=== PATIENT | male | born 1935 | race Asian ===

== ENCOUNTER 2017-05-22 03:47 | Inpatient (IN) | payer OTHER ==
--- NOTE | 2017-05-22 04:48 | PDOC ---
History of Present Illness - General Stated Complaint: FALL Time Seen by Provider: 05/22/17 03:51 - History of Present Illness Initial Comments: 05/22/17 04:39 82 yo with h/o HTN, DM, afib, vertigo, dementia, and recent fall who presents with facial trauma. Pt. and pt. at bedside are lithuanian speaking. Pt. to assist in report. Pt. unable to provide report d/t baseline dementia, altered mental status, and hearing difficulty. He lives with who is poor historian. States that at 0300 pt. fell while attempting to ambulate to bathroom and hit left side of head on hand rail. He that he has been experiencing difficulty with walking this past week. He has been stumbling more frequently and complaining of lightheadedness. He has had recent fall and evaluated at OSH 3 days ago. States that he is compliant with all medication, and recently seen by professor of graphic design Dr. Hipolito Aguilar at [facility]. Scheduled for Cardiology apt. ( 05/22). Pt. on Rivaroxaban 20 mg PO QD. Past History - Past Medical History Allergies/Adverse Reactions: Allergies Allergy/AdvReac Type Severity Reaction Status Date / Time No Known Allergies Allergy Verified 05/22/17 06:40 Home Medications: Ambulatory Orders Acetaminophen W/ Codeine #3 [Tylenol # 3 -] 1 tab PO DAILY 05/22/17 Donepezil HCl [Aricept -] 5 mg PO DAILY 05/22/17 Dutasteride [Avodart] 0.5 mg PO DAILY 05/22/17 Loratadine [Claritin] 10 mg PO DAILY 05/22/17 Losartan/Hydrochlorothiazide [Losartan-Hctz 100-25 mg Tab] 1 each PO DAILY 05/22 Meclizine HCl 12.5 mg PO DAILY 05/22/17 Metformin HCl 500 mg PO DAILY 05/22/17 Metoprolol Succinate [Toprol Xl -] 50 mg PO DAILY 05/22/17 Multivitamin,Therapeutic [Thera] 1 each PO DAILY 05/22/17 Rivaroxaban [Xarelto -] 20 mg PO DAILY 05/22/17 Sennosides [Senna] 8.6 mg PO DAILY 05/22/17 Sitagliptin Phosphate [Januvia] 50 mg PO DAILY 05/22/17 Review of Systems - Review of Systems Comments:: 05/22/17 06:05 Unable to assess d/t pt. mental status *Physical Exam - Physical Exam Comments: 05/22/17 04:50 Physical exam limited d/t AMS, and weakness. GENERAL: Awake, alert. Pt. lethargic. HEAD: + mild 1 mm laceration/abrasion left superior forehead orbit/eyebrow.+ left maxillary abrasion. Left inferior orbit swelling. normocephalic, EYES: PERRLA, EOMI, sclera anicteric, conjunctiva clear ENT: + Cerumen impaction BL. Tympanic membranes difficult to visualize. Auricles normal inspection, hearing grossly normal, nares patent, oropharynx clear without. Absent hemotypanum. No evidence of septal hematoma. exudates. Moist mucosa NECK: Normal ROM, supple, no lymphadenopathy, JVD, or masses LUNGS: No distress, clear to auscultation bilaterally HEART: Irregular rate and rhythm. normal S1 and S2, no murmurs, rubs or gallops , peripheral pulses normal and equal bilaterally. ABDOMEN: Soft, nontender, normoactive bowel sounds. No guarding, no rebound. No masses EXTREMITIES:Dried blood present on plantar surface of right foot. Normal passive range of motion, no edema. No clubbing or cyanosis. NEUROLOGICAL: CN II-III intact SKIN: Warm, Dry, normal turgor, no rashes or lesions noted. Heart Score/ECG Review - History History: Moderately suspicious - Age Age: >/= 65 - Risk Factors Risk Factors Heart Score: Yes Hx Hypercholesterolemia, Yes Hx Hypertension, Yes Hx Diabetes Based on the list above the patient has:: >/=3 risk factors or Hx atherosclerotic disease - ECG Intrepretation Rhythm: PVC(s) - [place]: Right [place] Deviation - ST and T Comment:: 05/22/17 05:52 Diffuse T wave depression - ECG Impressions Normal ECG: No WPW: No ED Treatment Course - LABORATORY CBC & Chemistry Diagram: 05/22/17 05:18 05/22/17 05:18 - RADIOLOGY Radiology Studies Ordered: Category Date Time Status CERVICAL SPINE CT W/O CONTR [CT] Stat CT Scan 05/22/17 04:[address] WITHOUT CONTRAST [CT] Stat CT Scan 05/22/17 04:01 Ordered CXRPORT [CHEST X-RAY PORTABLE*] [RAD] Stat Radiology 05/22/17 04:28 Ordered Radiograph Interpretation: 05/22/17 07:00 EXAM#: TYPE/EXAM: RESULT: [id number] RAD/CHEST X-RAY PORTABLE* Lightheadedness. Single portable chest x-ray. Cardiomegaly. Left lower lung zone obscured by the cardiac silhouette. No evidence of CHF, pneumothorax, pulmonary consolidation in the right lung, left upper lung zone. Right mid lung granuloma. Intact visualized also structures. Impression. Cardiomegaly. No evidence of CHF. No evidence of active pulmonary disease. Reported By: Gianfranco Gómez MD 05/22/17 0654 Hipolito Weiss Medical Decision Making - Medical Decision Making 05/22/17 05:53 82 yo with h/o HTN, DM, afib, vertigo, dementia, and recent fall who presents with facial trauma 2/2 fall. Pt. unable to provide report d/t baseline dementia , altered mental status, and hearing difficulty. At 0300 Pt. fell and hit head while attempting ambulation to bathroom. Has experienced increased lightheadedness within past week. Let sided forehead and left maxillary abrasion and swelling. DDx: Afib 05/22/17 05:56 ED Course: CBC, CMP, Trop, BNP EKG CXR CT HEAD/NECK 05/22/17 05:57 EKG: Reveals Accelerated junctional rhythm with frequent PVC. 05/22/17 06:05 Hgb/Hct: 10.5/31 05/22/17 06:18 Plt-113 05/22/17 07:00 Impression. Cardiomegaly. No evidence of CHF. No evidence of active pulmonary disease. Reported By: Gianfranco Gómez MD 05/22/17 0654 Hipolito Weiss Trop: Neg
[2017-05-22 05:27] LABS: EOSINOPHIL 2.4 % (0-4.5); MCH 33.1 pg (25.7-33.7); MCHC 33.8 g/dl (32.0-35.9); MEAN CELL VOLUME 97.9 fl (80-96); NEUTROPHILS 66.6 % (42.8-82.8); PLATELET COUNT 113 K/MM3 (134-434); RDW 14.3 % (11.9-15.9); WHITE BLOOD COUNT 4.2 K/mm3 (4.0-10.0)
[2017-05-22 05:29] VITALS: BMI 23.4
--- NOTE | 2017-05-22 06:07 | PDOC ---
Attending Attestation - Resident Resident Name: Hipolito Weiss - ED Attending Attestation I have performed the following: I have examined & evaluated the patient, The case was reviewed & discussed with the resident, I agree w/resident's findings & plan, Exceptions are as noted <Bradly Garcia - Last Filed: 05/22/17 06:07> - HPI HPI: The patient is a 82 yo M with a past medical history significant for HTN, DM, Afib and dementia who presents s/p mechanical fall with forehead laceration. The patient is a poor historian secondary to dementia. As per , the patient fell while attempting to ambulate to bathroom and hit left side of head on hand rail. As per the patients , the patient has been falling recently ( most recently prior to today was 3 days ago.) The patient reports hes been having increased lightheadedness over the past 3 weeks. As per the patients , she is unaware as to what his symptoms are. - Physicial Exam PE: GENERAL: Well developed, well nourished. Awake and alert. No acute distress. HEENT: Normocephalic. Soft tissue swelling no bony deformity. Abrasion L frontal scalp , L cheek. PERRLA, EOMI. No conjunctival pallor. Sclera are non-icteric. Moist mucous membranes. Oropharynx is clear. NECK: Supple. Full ROM. No JVD. Carotid pulses 2+ and symmetric, without bruits. No thyromegaly. No lymphadenopathy. CARDIOVASCULAR: Regular rate and rhythm. No murmurs, rubs, or gallops. Distal pulses are 2+ and symmetric. PULMONARY: No evidence of respiratory distress. Lungs clear to auscultation bilaterally. No wheezing, rales or rhonchi. ABDOMINAL: Soft. Non-tender. Non-distended. No rebound or guarding. No organomegaly. Normoactive bowel sounds. MUSCULOSKELETAL Normal range of motion at all joints. No bony deformities or tenderness. No CVA tenderness. EXTREMITIES: No cyanosis. No clubbing. No edema. No calf tenderness. SKIN: Warm and dry. Normal capillary refill. No rashes. No jaundice. NEUROLOGICAL: No gross focal neurological deficits. PSYCHIATRIC: Cooperative. Good eye contact. Appropriate mood and affect. - Medical Decision Making Documentation prepared by Ambreen Dela Cruz, acting as medical records secretary for Bradly Garcia MD/DO. <Ambreen Dela Cruz - Last Filed: 05/22/17 06:09>
[2017-05-22 06:11] LABS: ALBUMIN 3.9 g/dl (3.4-5.0); ANION GAP 5 (8-16); BILIRUBIN,TOTAL 0.9 mg/dL (0.2-1.0); CALCIUM 8.9 mg/dL (8.5-10.1); CO2 32 mmol/L (21-32); CREATININE 1.1 mg/dL (0.7-1.3); GLUCOSE,RANDOM 132 mg/dL (74-106); SGOT/AST 65 U/L (15-37); SGPT/ALT 83 U/L (12-78); TOT PROT 6.5 g/dl (6.4-8.2)
[2017-05-22 06:12] LABS: ALK PHOS 88 U/L (45-117); MAGNESIUM 2.3 mg/dL (1.8-2.4)
[2017-05-22 06:14] LABS: CPK 180 IU/L (39-308); TROPONIN I < 0.02 ng/ml (0.00-0.05)
[2017-05-22 06:40] LABS: INR 1.22 (0.82-1.09); PROTHROMBIN TIME (PATIENT) 13.5 SEC (9.98-11.88)
--- NOTE | 2017-05-22 07:21 | PDOC ---
*Physical Exam - Vital Signs Last Vital Signs Temp Pulse Resp BP Pulse Ox 97.4 F L 73 18 112/65 98 05/22/17 05:00 05/22/17 06:32 05/22/17 06:32 05/22/17 06:32 05/22/17 06:32 ED Treatment Course - LABORATORY CBC & Chemistry Diagram: 05/22/17 05:18 05/22/17 05:18 - ADDITIONAL ORDERS Additional order review: Laboratory Results 05/22/17 05/22/17 05/22/17 05:18 05:18 05:18 INR PTT (Actin FS) 35.2 H Sodium 142 Potassium 3.8 Chloride 105 Carbon Dioxide 32 Anion Gap 5 L BUN 23 H Creatinine 1.1 Creat Clearance w eGFR > 60 Random Glucose 132 H Calcium 8.9 Magnesium 2.3 Total Bilirubin 0.9 AST 65 H ALT 83 H Alkaline Phosphatase 88 Creatine Kinase 180 Creatine Kinase Index 1.4 CK-MB (CK-2) 2.525 Troponin I < 0.02 Total Protein 6.5 Albumin 3.9 05/22/17 05:18 INR 1.22 H PTT (Actin FS) Sodium Potassium Chloride Carbon Dioxide Anion Gap BUN Creatinine Creat Clearance w eGFR Random Glucose Calcium Magnesium Total Bilirubin AST ALT Alkaline Phosphatase Creatine Kinase Creatine Kinase Index CK-MB (CK-2) Troponin I Total Protein Albumin 05/22/17 05:18 RBC 3.17 L MCV 97.9 H MCHC 33.8 RDW 14.3 MPV 8.0 Neutrophils % 66.6 Lymphocytes % 20.7 Monocytes % 9.3 Eosinophils % 2.4 Basophils % 1.0 Medical Decision Making - Medical Decision Making 05/22/17 07:13 Care taken over from Dr. Hipolito Weiss. Patient had fall overnight and recent increased history of fall. Waiting on CT head/face and cardiac workup. 05/22/17 08:01 CT positive for facial fracture. Also concerning is abnormal heart rate (afib and PVCs). Will admit for followup. 05/22/17 10:04 PCP: Olaf Chandler Burn Table Operator: Hipolito Aguilar (called to investigate millie) 05/22/17 11:20 Burn Table Operator called and confirmed patient's heart condition is long standing - EF is normally 40 with afib and pvc's at baseline, patient's meds are: Toprolol XL 50 Losartan 25 Crestor 5 Zorelto 20 On board with plan and will follow-up after discharge. Suggests to beta block Mr. Lee as needed. *DC/Admit/Observation/Transfer Diagnosis at time of Disposition: Bigeminy - Discharge Dispostion Admit: Yes - Attestations Physician Attestion: 05/22/17 09:57 I, Dr. Vel Mock, attest that this document has been prepared under my direction and personally reviewed by me in its entirety. I further attest, that it accurately reflects all work, treatment, procedures and medical decision -making performed by me.
[2017-05-22] MEDS ORDERED: ACETAMINOPHEN 650 MG/20.3 ML ORAL SOLUTION (CUPS) PO ONE (07:59)
--- NOTE | 2017-05-22 09:20 | EKG ---
Test Reason : Blood Pressure : / mmHG Vent. Rate : 079 BPM Atrial Rate : 079 BPM P-R Int : 000 ms QRS Dur : 094 ms QT Int : 406 ms P-R-T Axes : 000 106 041 degrees QTc Int : 465 ms ACCELERATED JUNCTIONAL RHYTHM WITH FREQUENT PREMATURE VENTRICULAR COMPLEXES IN A PATTERN OF BIGEMINY RIGHTWARD AXIS ABNORMAL ECG NO PREVIOUS ECGS AVAILABLE Confirmed by KATIE HUGHES MD ([id number]) on 05/22/2017 9:19:49 AM Referred By: Confirmed By:KATIE HUGHES MD
[2017-05-22 09:41] LABS: URINE APPEARANCE CLEAR; URINE BILIRUBIN NEGATIVE (NEGATIVE); URINE BLOOD NEGATIVE (NEGATIVE); URINE COLOR LTYELLOW; URINE GLUCOSE (UA) NEGATIVE (NEGATIVE); URINE KETONE TRACE (NEGATIVE); URINE LEUK ESTERASE NEGATIVE (NEGATIVE); URINE NITRITE NEGATIVE (NEGATIVE); URINE PROTEIN NEGATIVE (NEGATIVE); URINE UROBILINOGEN NEGATIVE mg/dL (0.2-1.0)
[2017-05-22] MEDS ORDERED: HEPARIN NA (PORCINE) 5,000 UNITS/ML 1ML VIAL SQ SCH (10:45)
[2017-05-22] MEDS ORDERED: LOSARTAN POTASSIUM 25 MG TABLET PO ONE (10:51)
[2017-05-22] MEDS ORDERED: ACETAMINOPHEN 325 MG TABLET (FP) PO PRN (11:11)
--- NOTE | 2017-05-22 11:23 | HP ---
CHIEF COMPLAINT: FALL PCP:Dr.Jung Julianne Chandler HISTORY OF PRESENT ILLNESS: History taken from ER documentation: 82 yo M with a PMHx significant for HTN, DM, Afib(AC with Xarelto), vertigo and dementia who presents s/p mechanical fall with forehead laceration. The patient is a poor historian secondary to dementia. As per , the patient fell while attempting to ambulate to bathroom and hit left side of head on hand rail. As per the patients , the patient has been falling recently ,most recently prior to today was 3 days ago seen at another facility. The patient reported hes been having increased lightheadedness over the past 3 weeks. As per the patients , she is unaware as to what his symptoms are. States that he is compliant with all medication, and recently seen by retirement officer Dr. Hipolito Aguilar at [facility]. ER course was notable for: (1)EKG shows accelerated junctional rhythm with frequent PVC's and ventricular Bigeminy, Right axis deviation (2)Troponin I (-) x 1 (3)CT head shows facial fracture (reported below in imaging) Recent Travel: Denies PAST MEDICAL HISTORY:HTN, DM, Afib(AC with Xarelto), vertigo and dementia PAST SURGICAL HISTORY: Social History: Smoking: Alcohol: Drugs: Family History: Allergies No Known Allergies Allergy (Verified 05/22/17 06:40) HOME MEDICATIONS: Home Medications Medication Instructions Recorded Acetaminophen W/ Codeine #3 1 tab PO DAILY 05/22/17 [Tylenol # 3 -] Donepezil HCl [Aricept -] 5 mg PO DAILY 05/22/17 Dutasteride [Avodart] 0.5 mg PO DAILY 05/22/17 Loratadine [Claritin] 10 mg PO DAILY 05/22/17 Losartan/Hydrochlorothiazide 1 each PO DAILY 05/22/17 [Losartan-Hctz 100-25 mg Tab] Meclizine HCl 12.5 mg PO DAILY 05/22/17 Metformin HCl 500 mg PO DAILY 05/22/17 Metoprolol Succinate [Toprol Xl -] 50 mg PO DAILY 05/22/17 Multivitamin,Therapeutic [Thera] 1 each PO DAILY 05/22/17 Rivaroxaban [Xarelto -] 20 mg PO DAILY 05/22/17 Sennosides [Senna] 8.6 mg PO DAILY 05/22/17 Sitagliptin Phosphate [Januvia] 50 mg PO DAILY 05/22/17 REVIEW OF SYSTEMS Difficult to assess given patients baseline dementia. PHYSICAL EXAMINATION GENERAL:Awake and alert HEAD: NC, 1 cm Left sided hematoma and abrasion of superior orbit. left maxillary abrasion. EYES:PERRLA,EOMI, sclera anicteric, conjunctiva clear. No lid lag. EARS, NOSE, THROAT: Moist mucous membranes. NECK: supple with no jvd, lad, or masses. LUNGS: Bibasilar fine crackles otherwise CTAB, No accessory muscle use. HEART: Irregular, normal S1 and S2 without murmur, rub or gallop. ABDOMEN: Soft, nontender, not distended, normoactive bowel sounds, no guarding, no rebound, no masses. No hepatomegaly or splenomegaly. MUSCULOSKELETAL: Normal range of motion at all joints. No bony deformities or tenderness. No CVA tenderness. UPPER EXTREMITIES: 2+ pulses, warm, well-perfused. No cyanosis. No clubbing. No peripheral edema. LOWER EXTREMITIES: 2+ pulses, warm, well-perfused. No calf tenderness. 1+ edema. NEUROLOGICAL: Cranial nerves II-XII intact. gait not observed. PSYCHIATRIC: Cooperative. Good eye contact. Appropriate mood and affect. LABS: Laboratory Results - last 24 hr 05/22/17 05/22/17 05/22/17 05:18 05:18 05:18 WBC 4.2 RBC 3.17 L Hgb 10.5 L Hct 31.0 L MCV 97.9 H MCH 33.1 MCHC 33.8 RDW 14.3 Plt Count 113 L MPV 8.0 Neutrophils % 66.6 Lymphocytes % 20.7 Monocytes % 9.3 Eosinophils % 2.4 Basophils % 1.0 INR 1.22 H PTT (Actin FS) Sodium 142 Potassium 3.8 Chloride 105 Carbon Dioxide 32 Anion Gap 5 L BUN 23 H Creatinine 1.1 Creat Clearance w eGFR > 60 Random Glucose 132 H Calcium 8.9 Magnesium Total Bilirubin 0.9 AST 65 H ALT 83 H Alkaline Phosphatase 88 Creatine Kinase Creatine Kinase Index CK-MB (CK-2) Troponin I Total Protein 6.5 Albumin 3.9 Urine Color Urine Appearance Urine pH Urine Protein Urine Glucose (UA) Urine Ketones Urine Blood Urine Nitrite Urine Bilirubin Urine Urobilinogen Ur Leukocyte Esterase 05/22/17 05/22/17 05/22/17 05:18 05:18 08:47 WBC RBC Hgb Hct MCV MCH MCHC RDW Plt Count MPV Neutrophils % Lymphocytes % Monocytes % Eosinophils % Basophils % INR PTT (Actin FS) 35.2 H Sodium Potassium Chloride Carbon Dioxide Anion Gap BUN Creatinine Creat Clearance w eGFR Random Glucose Calcium Magnesium 2.3 Total Bilirubin AST ALT Alkaline Phosphatase Creatine Kinase 180 Creatine Kinase Index 1.4 CK-MB (CK-2) 2.525 Troponin I < 0.02 Total Protein Albumin Urine Color Ltyellow Urine Appearance Clear Urine pH 5.0 Urine Protein Negative Urine Glucose (UA) Negative Urine Ketones Trace H Urine Blood Negative Urine Nitrite Negative Urine Bilirubin Negative Urine Urobilinogen Negative Ur Leukocyte Esterase Negative IMAGING: * CT/HEAD CT WITHOUT CONTRAST Head trauma. Status post fall. CT scan of the brain c-. Findings. Serial axial images of the brain were obtained from foramen magnum to the cranial vertex without intravenous contrast. The study was supplemented with computer-generated coronal and sagittal reconstruction images. Cook 3 [place] image was reviewed. There is no evidence of acute subarachnoid hemorrhage, acute intra-axial or extra-axial fluid collection consistent with subdural or epidural hematoma. No mass effect, midline shift, acute territorial ischemic changes, herniation or edema is present. Normal james matter white matter differentiation. The cortical sulci, sylvian fissures, perimesencephalic cisterns are not effaced. Loss of volume of the brain parenchyma with involutional changes. Tiny perivascular spaces versus lacunar infarct left basal ganglia. Examination of the bone windows show no fracture. Hypoplastic maxillary sinuses. Hemorrhagic air-fluid level in the left maxillary sinus. Majority of the left ethmoid air cells are opacified. Comminuted fracture of the left lamina papyracea is noted. There is no entrapment of the medial rectus muscle. Mildly swollen left medial rectus muscle The zygomatic arches are intact. Intact roof of the orbit. No displaced fracture involving the floor of the orbit. Symmetrical ocular globes. Status post cataract surgeries. No radiopaque foreign body seen. No evidence of exophthalmus. Impression. No evidence of acute intracranial hemorrhage, edema, midline shift, mass effect, or skull fracture. No CT evidence of acute territorial ischemic changes. Comminuted fracture of left lamina papyracea with mild medial displacement. No entrapment of the left medial rectus muscles. Swollen left medial rectus muscles. Minimal increased attenuation of retro-orbital fat along the lamina papyracea represents edema possible, hemorrhage. Hemorrhagic air-fluid level in the left maxillary sinus. Majority of the left ethmoid air cells are opacified. Reported By: Gianfranco Gómez MD 05/22/17 0734 ASSESSMENT/PLAN: 82 yo M with a past medical history significant for HTN, DM, Afib(AC with Xarelto), vertigo and dementia admitted for facial fracture and ventricular bigeminy. Problem List - Problem (1) Bigeminy Assessment/Plan: * Will admit to telemtry from monitoring . * Not sure of his baseline EKG- His retirement officer has been contacted and awaiting call back. * Consulted Dr. Kerns (certified residential medication aide) retirement officer. * Will trend Troponin I ; first set negative. * Echo pending. (2) Facial fracture due to fall Assessment/Plan: * CT results reported above. * Will continue to monitor on telemetry * Dr. Ricardo Rodríguez consulted. Visit type - Emergency Visit Emergency Visit: Yes ED Registration Date: 05/22/17 Care time: The patient presented to the Emergency Department on the above date and was hospitalized for further evaluation of their emergent condition. - New Patient This patient is new to me today: Yes Date on this admission: 05/27/17 - Critical Care Critical Care patient: No
--- NOTE | 2017-05-22 11:42 | HP ---
CHIEF COMPLAINT: s/p mechanical fall PCP: Dr. Olaf Chandler HISTORY OF PRESENT ILLNESS: 82 year old M with pmh of HTn, DM, A fib, vertigo, and baseline dementia who persented to the ED s/p mechanical fall with forehead laceration. Patient is a persian speaking male and is a poor historian 2/2 to dementia. As per , the patient fell at 3 AM while attempting to ambulate to bathroom and hit left side of head on hand rail. As per the patients , the patient has been falling recently, most recently prior to today was 3 days ago seen at another facility. The patient reported hes been having increased lightheadedness over the past 3 weeks. As per the patients , she is unaware as to what his symptoms are. States that he is compliant with all medication, and recently seen by electrical laboratory technician Dr. Hipolito Aguilar at [facility]. ER course was notable for: (1) CBC, BMP, Trops - x1 (2) UA-negative, CXR- no acute process, CT head- left orbital fracture (3) EKG- pvc's in bigeminy and right axis deviation Recent Travel: denies PAST MEDICAL HISTORY: HTN, DM, Afib(AC with Xarelto), vertigo and dementia PAST SURGICAL HISTORY: unknown Social History: Smoking: unknown Alcohol: unknown Drugs: unknown Family History: unknown Allergies No Known Allergies Allergy (Verified 05/22/17 06:40) HOME MEDICATIONS: Home Medications Medication Instructions Recorded Acetaminophen W/ Codeine #3 1 tab PO DAILY 05/22/17 [Tylenol # 3 -] Donepezil HCl [Aricept -] 5 mg PO DAILY 05/22/17 Dutasteride [Avodart] 0.5 mg PO DAILY 05/22/17 Loratadine [Claritin] 10 mg PO DAILY 05/22/17 Losartan/Hydrochlorothiazide 1 each PO DAILY 05/22/17 [Losartan-Hctz 100-25 mg Tab] Meclizine HCl 12.5 mg PO DAILY 05/22/17 Metformin HCl 500 mg PO DAILY 05/22/17 Metoprolol Succinate [Toprol Xl -] 50 mg PO DAILY 05/22/17 Multivitamin,Therapeutic [Thera] 1 each PO DAILY 05/22/17 Rivaroxaban [Xarelto -] 20 mg PO DAILY 05/22/17 Sennosides [Senna] 8.6 mg PO DAILY 05/22/17 Sitagliptin Phosphate [Januvia] 50 mg PO DAILY 05/22/17 REVIEW OF SYSTEMS Unable to assess due to patient's dementia PHYSICAL EXAMINATION GENERAL:Awake and alert HEAD: Normocephalic, Left sided hematoma and abrasion of superior orbit. left maxillary abrasion. +periorbital edema EYES:PERRLA,EOMI, sclera anicteric, conjunctiva clear. No lid lag. EARS, NOSE, THROAT: Moist mucous membranes. NECK: supple with no jvd, lad, or masses. LUNGS: Bibasilar crackles, No accessory muscle use. HEART: Irregular rhythm, normal S1 and S2 without murmur, rub or gallop. ABDOMEN: Soft, nontender, not distended, normoactive bowel sounds, no guarding, no rebound, no masses. No hepatomegaly or splenomegaly. MUSCULOSKELETAL: Normal range of motion at all joints. No bony deformities or tenderness. No CVA tenderness. UPPER EXTREMITIES: 2+ pulses, warm, well-perfused. No cyanosis. No clubbing. No peripheral edema. LOWER EXTREMITIES: 2+ pulses, warm, well-perfused. No calf tenderness. 1+ edema. Right foot with dried blood NEUROLOGICAL: Cranial nerves II-XII intact. gait not observed. PSYCHIATRIC: Cooperative. Good eye contact. Appropriate mood and affect. ASSESSMENT/PLAN: 82 yo M with a past medical history significant for HTN, DM, Afib(AC with Xarelto), vertigo and dementia presented s/p mechanical fall admitted for facial fracture and ventricular bigeminy. #Mechanical Fall 2/2 to arrythmia vs baseline dementia -Admit to telemetry -Dr. Aguilar (electrical laboratory technician) said patient has atrial fibrillation and bigeminy as baseline -Cardiology consult, Dr. Kerns -Troponins negative x2, 3rd trop @ 1800 -Echo pending -Continue aricept #Facial Fracture -Ent consulted, Dr. Rodríguez -Tylenol 650 mg q4 prn for pain #Atrial Fibrillation, -Continue xarelto 20 mg daily #Diabetes Mellitus -Will hold home medications -BGM ACHS -ISS ACHS #Vertigo -Continue meclizine 12.5 mg po daily #HTN -Continue Cozaar 25 mg po daily, hctz 25 mg po daily, toporol xl 50 mg po daily #BPH -Continue avodart 0.5 mg po daily #fen/gi no fluids electrolytes wnl sodium controlled diet #ppx dvt- xarelto gi not indicated Visit type - Emergency Visit Emergency Visit: Yes ED Registration Date: 05/22/17 Care time: The patient presented to the Emergency Department on the above date and was hospitalized for further evaluation of their emergent condition. - New Patient This patient is new to me today: Yes Date on this admission: 05/22/17 - Critical Care Critical Care patient: No
[2017-05-22] MEDS ORDERED: HEMOQUE TEST 1 EACH EACH ONE (12:05)
[2017-05-22] MEDS: INSULIN SLIDING SCALE (NOVOLOG) 1 VIAL SQ SCH ×3 (12:42→21:27)
--- NOTE | 2017-05-22 14:04 | PN ---
Teaching Attending Note Name of Resident: Gerard Abarca ATTENDING PHYSICIAN STATEMENT I saw and evaluated the patient. I reviewed the resident's note and discussed the case with the resident. I agree with the resident's findings and plan as documented. SUBJECTIVE:HPI is per chart as pt is a poor historian. multiple attempts to use cyrafone however rings busy. family states no one available to translate 82 yo M with a PMHx significant for HTN, DM, Afib(AC with Xarelto), vertigo and dementia who presents s/p mechanical fall with forehead laceration. witnessed mechanical fall by as pt was ambulating to the bathroom. she admits to frequent falls recently. was recently at another facility for a fall. currently the pt states no to any pain OBJECTIVE: Last Vital Signs Temp Pulse Resp BP Pulse Ox 97.4 F L 90 18 133/88 98 05/22/17 05:00 05/22/17 13:42 05/22/17 13:42 05/22/17 13:42 05/22/17 13:42 General NAD HEENT abrasion to L superior orbit, +periorbital edema, zygomatic arch with hematoma but no tenderness. EOMI, PERRL CV S1 S2 RRR no murmur/rub/gallop, no chest wall tenderness, no bruising or trauma noted to the chest wall Lungs CTA B/L anteriorly no wheezing ABdomen soft NT/ND Extremities no pedal edema ASSESSMENT AND PLAN: 82 yo M with a PMHx significant for HTN, DM, Afib(AC with Xarelto), vertigo and dementia who presents s/p mechanical fall with forehead laceration 1. s/p mechanical fall- with L lamina papyracea fracture with medial displacement. ENT consulted for possible need for intervention. EOMI. 2. mod to large pericardial effusion- seen on echo. no signs of tamponade. hemodynamically stable. no trauma noted to chest wall. concern due to pt being on xarelto. CT chest with contrast stat to further evaluate. if there is any fracture or trauma noted to the chest will need to be transferred to trauma center for immediate intervention. consult for CT surgery. spoke with both Dr Adams and Dr Cintron. will hold xarelto 3. Bigeminy- notified by ER that per rn labor and delivery this is not new and reported as baseline. cardiac enzymes neg x2. cardio consulted 4. Afib on xarelto- xarelto being held given effusion. cont rate control with betablocker 5. DM- hold oral agents. BGM, iss 6. BPH- cont avodart 7. DVT ppx- hold anticoagulation. SCD
--- NOTE | 2017-05-22 19:19 | CON.ENT ---
Consult Consult Specialty:: ENT Referred by:: Dr. Mukherjee Reason for Consultation:: fall, facial fracture - History of Present Illness Chief Complaint: fall History of Present Illness: pt admitted s/p fall at home today, by report was in home and fell hitting left face against a bathroom rail. has hx HTN, DM, atrial fibrillation and dementia , has been having falls recently last one 3 weeks prior to admission) facial trauma with left facial/periorbital swelling admitted by report, possible pericardial effusion, pt is in Radiology Department awaiting urgent CT scan of chest (Dr. Porter), per nursing staff, possible urgent transfer to [facility] depending upon CT scan results. 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 Cardio/Vascular: Yes: AFIB, HTN Endocrine: Yes: Diabetes Mellitus - Alcohol/Substance Use Hx Alcohol Use: No - Smoking History Smoking history: Never smoked Have you smoked in the past 12 months: No Home Medications - Allergies Allergies/Adverse Reactions: Allergies Allergy/AdvReac Type Severity Reaction Status Date / Time No Known Allergies Allergy Verified 05/22/17 06:40 - Home Medications Home Medications: Ambulatory Orders Acetaminophen W/ Codeine #3 [Tylenol # 3 -] 1 tab PO DAILY 05/22/17 Donepezil HCl [Aricept -] 5 mg PO DAILY 05/22/17 Dutasteride [Avodart] 0.5 mg PO DAILY 05/22/17 Loratadine [Claritin] 10 mg PO DAILY 05/22/17 Losartan/Hydrochlorothiazide [Losartan-Hctz 100-25 mg Tab] 1 each PO DAILY 05/22 Meclizine HCl 12.5 mg PO DAILY 05/22/17 Metformin HCl 500 mg PO DAILY 05/22/17 Metoprolol Succinate [Toprol Xl -] 50 mg PO DAILY 05/22/17 Multivitamin,Therapeutic [Thera] 1 each PO DAILY 05/22/17 Rivaroxaban [Xarelto -] 20 mg PO DAILY 05/22/17 Sennosides [Senna] 8.6 mg PO DAILY 05/22/17 Sitagliptin Phosphate [Januvia] 50 mg PO DAILY 05/22/17 Family Disease History - Family Disease History Family History: Unable to Obtain Physical Exam-ENT Vital Signs: Vital Signs Temperature 98.5 F 05/22/17 18:15 Pulse Rate 86 05/22/17 18:15 Respiratory Rate 18 05/22/17 18:15 Blood Pressure 112/65 05/22/17 18:15 O2 Sat by Pulse Oximetry (%) 98 05/22/17 18:15 Constitutional: Yes: No Distress, Calm Head: Yes: WNL Face: Yes: Asymmetrical, Normal Facial Strength, Normal Salivary Glands, Other ( left facial/periorbital edema with sl ecchymosis, very superficial linear abrasion/laceration, no bleeding, no stepoff of nasal bones or orbital rims, zygomas symmetric, no trismus, mandible no evidence of fracture) Eyes: Yes: Other (no proptosis, no hyphema, EOM's cannot be fully assessed secondary to language barrier) Nose: Yes: Septum Deviated Nasal Passage: Yes: Other (nasal endoscopy: nasal septum intact, deviated, no hematoma; clear mucus right, sl blood left, inferior and middle turbinate edematous, superior turbinate/superior meati, sphenoethmoid recesses not visible ; middle meatus right edematous, left sl blood, no polyp visible) Oral/Pharynx: Yes: Other (missing teeth, no obviousl lesions, soft palate elongated, no bleeding or exudate in orophyarynx) Ear Canal: Yes: Cerumen Neck: Yes: WNL, Other (no mass or node, trachea midline, thyroid and salivary glands WNL) Respiratory: Yes: WNL Imaging - Results Cat Scan: Report Reviewed, Image Reviewed (head: +left medial orbital wall fracture (lamina papyracea) with opacification left ethmoid, AFL maxillary sinus (c/w blood), deviated septum; temporal bones show good aeration, no fluid) Problem List - Problems (1) Facial fracture due to fall Assessment/Plan: left medial orbital wall fracture associated bleeding into ethmoid and maxillary sinuses cannot fully assess vision or EOM status deviated septum entrapment uncommon with medial orbital wall fracture Recommend: Ophthalmology consultation to evaluate visual acuity, extraocular movements Neurology consultation because of falling, imbalance ice to face, elevation nasal saline spray bid antibiotic coverage because of blood in sinus Thank you for consultation, Ricardo Rodríguez MD FACS Code(s): S02.92XA - UNSP FRACTURE OF FACIAL BONES, INIT FOR CLOS FX W19.XXXA - UNSPECIFIED FALL, INITIAL ENCOUNTER Qualifiers: Encounter type: initial encounter Fracture type: closed Qualified Code(s): S02.92XA - Unspecified fracture of facial bones, initial encounter for closed fracture; W19.XXXA - Unspecified fall, initial encounter
[2017-05-23] MEDS: INSULIN SLIDING SCALE (NOVOLOG) 1 VIAL SQ SCH ×4 (06:46→22:01)
[2017-05-23] MEDS ORDERED: INSULIN (NOVOLOG) ASPART 100 UNITS/ML 10ML VIAL ONE ×2 (06:52→21:50)
[2017-05-23 07:01] LABS: BASOPHIL 0.9 % (0-2.0); EOSINOPHIL 2.1 % (0-4.5); MCH 32.3 pg (25.7-33.7); MCHC 33.2 g/dl (32.0-35.9); MEAN CELL VOLUME 97.3 fl (80-96); MEAN PLT VOLUME 8.9 fl (7.5-11.1); NEUTROPHILS 63.3 % (42.8-82.8); PLATELET COUNT 106 K/MM3 (134-434); RDW 14.5 % (11.9-15.9); WHITE BLOOD COUNT 4.4 K/mm3 (4.0-10.0)
[2017-05-23 07:14] LABS: ALBUMIN 3.3 g/dl (3.4-5.0); ALK PHOS 71 U/L (45-117); ANION GAP 6 (8-16); BILIRUBIN,TOTAL 0.7 mg/dL (0.2-1.0); CALCIUM 8.3 mg/dL (8.5-10.1); CO2 30 mmol/L (21-32); CREATININE 1.1 mg/dL (0.7-1.3); GLUCOSE,RANDOM 126 mg/dL (74-106); SGOT/AST 34 U/L (15-37); SGPT/ALT 55 U/L (12-78); TOT PROT 5.4 g/dl (6.4-8.2)
--- NOTE | 2017-05-23 07:55 | CONSULT ---
Consult - text type - Consultation Consultation Note: Cardiology HISTORY OF PRESENT ILLNESS: 82 year old M with pmh of HTn, DM, A fib, vertigo, and baseline dementia who persented to the ED s/p mechanical fall with forehead laceration. Patient is a sami speaking male and is a poor historian 2/2 to dementia. As per , the patient fell at 3 AM while attempting to ambulate to bathroom and hit left side of head on hand rail. As per the patients , the patient has been falling recently, most recently prior to today was 3 days ago seen at another facility. The patient reported hes been having increased lightheadedness over the past 3 weeks. Recent Travel: denies PAST MEDICAL HISTORY: HTN, DM, Afib(AC with Xarelto), vertigo and dementia PAST SURGICAL HISTORY: unknown Social History: Smoking: unknown Alcohol: unknown Drugs: unknown Family History: unknown Allergies No Known Allergies Allergy (Verified 05/22/17 06:40) HOME MEDICATIONS: Home Medications Medication Instructions Recorded Acetaminophen W/ Codeine #3 1 tab PO DAILY 05/22/17 [Tylenol # 3 -] Donepezil HCl [Aricept -] 5 mg PO DAILY 05/22/17 Dutasteride [Avodart] 0.5 mg PO DAILY 05/22/17 Loratadine [Claritin] 10 mg PO DAILY 05/22/17 Losartan/Hydrochlorothiazide 1 each PO DAILY 05/22/17 [Losartan-Hctz 100-25 mg Tab] Meclizine HCl 12.5 mg PO DAILY 05/22/17 Metformin HCl 500 mg PO DAILY 05/22/17 Metoprolol Succinate [Toprol Xl -] 50 mg PO DAILY 05/22/17 Multivitamin,Therapeutic [Thera] 1 each PO DAILY 05/22/17 Rivaroxaban [Xarelto -] 20 mg PO DAILY 05/22/17 Sennosides [Senna] 8.6 mg PO DAILY 05/22/17 Sitagliptin Phosphate [Januvia] 50 mg PO DAILY 05/22/17 CT head- left orbital fracture PE: vitals stable normal cardio-pulmonary exam abdomen soft no leg edema Impression: Chronic afib, controlled, 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 effusion incidental vs trauma; left chronic rib fractures, mid to lower chest No intervention needed at this time, hopefully will resorb without Xarelto Plan: Observe repeat Echocardiogram Thursday Stop Xarelto will closely follow-up continue current meds
[2017-05-23] MEDS ORDERED: PT OWN MED DRAWER 7, Y5N ONE ×2 (09:46→18:56)
[2017-05-23] MEDS ORDERED: RIVAROXABAN 20 MG TABLET PO SCH (10:00)
[2017-05-23] MEDS: HYDROCHLOROTHIAZIDE 25 MG TABLET (FP) PO SCH (10:19)
[2017-05-23] MEDS: METOPROLOL SUCCINATE 50 MG TAB.SR.24H (FP) PO SCH (10:19)
[2017-05-23] MEDS: LOSARTAN POTASSIUM 25 MG TABLET PO SCH (10:20)
[2017-05-23] MEDS: MECLIZINE HCL 12.5 MG TABLET PO SCH (10:20)
[2017-05-23] MEDS: DONEPEZIL HCL 5 MG TABLET (FP) PO SCH ×2 (10:20→22:01)
[2017-05-23] MEDS: DUTASTERIDE 0.5 MG CAP (FP) PO SCH (10:20)
--- NOTE | 2017-05-23 11:07 | PN ---
Progress Note (short form) - Note Progress Note: sitting in chair comfortable. states 'no pain". Current Medications Generic Name Dose Route Start Last Admin Trade Name Freq PRN Reason Stop Dose Admin Acetaminophen 650 mg 05/22/17 11:11 05/22/17 23:25 Tylenol - PO 650 mg Q4H PRN Administration FEVER OR PAIN Donepezil HCl 5 mg 05/23/17 10:00 05/23/17 10:20 Aricept - PO 5 mg HS PIERRE Administration Dutasteride 0.5 mg 05/23/17 10:00 05/23/17 10:20 Avodart - PO 0.5 mg DAILY PIERRE Administration Hydrochlorothiazide 25 mg 05/23/17 10:00 05/23/17 10:19 Hctz - PO 25 mg DAILY PIERRE Administration Insulin Aspart 1 vial 05/22/17 11:00 05/23/17 06:46 Novolog Vial Sliding Scale - SQ Not Given ACHS PIERRE Protocol Losartan Potassium 25 mg 05/23/17 10:00 05/23/17 10:20 Cozaar - PO 25 mg DAILY PIERRE Administration Meclizine HCl 12.5 mg 05/23/17 10:00 05/23/17 10:20 Antivert - PO 12.5 mg DAILY PIERRE Administration Metoprolol Succinate 50 mg 05/23/17 10:00 05/23/17 10:19 Toprol Xl - PO 50 mg DAILY PIERRE Administration Last Vital Signs Temp Pulse Resp BP Pulse Ox 98.1 F 84 20 112/56 98 05/23/17 06:00 05/23/17 06:00 05/23/17 06:00 05/23/17 06:00 05/22/17 21:19 General NAD HEENT abrasion to L superior orbit, +periorbital edema, zygomatic arch with hematoma but no tenderness. EOMI, PERRL CV S1 S2 irregular irregular no murmur/rub/gallop, no chest wall tenderness, no bruising or trauma noted to the chest wall Lungs CTA B/L anteriorly no wheezing ABdomen soft NT/ND Extremities no pedal edema CBCD WBC 4.4 K/mm3 (4.0-10.0) 05/23/17 06:00 RBC 2.95 M/mm3 (4.00-5.60) L 05/23/17 06:00 Hgb 9.5 GM/dL (11.7-16.9) L 05/23/17 06:00 Hct 28.7 % (35.4-49) L 05/23/17 06:00 MCV 97.3 fl (80-96) H 05/23/17 06:00 MCHC 33.2 g/dl (32.0-35.9) 05/23/17 06:00 RDW 14.5 % (11.9-15.9) 05/23/17 06:00 Plt Count 106 K/MM3 (134-434) L 05/23/17 06:00 MPV 8.9 fl (7.5-11.1) D 05/23/17 06:00 CMP Sodium 143 mmol/L (136-145) 05/23/17 06:00 Potassium 3.7 mmol/L (3.5-5.1) 05/23/17 06:00 Chloride 107 mmol/L (98-107) 05/23/17 06:00 Carbon Dioxide 30 mmol/L (21-32) 05/23/17 06:00 Anion Gap 6 (8-16) L 05/23/17 06:00 BUN 25 mg/dL (7-18) H 05/23/17 06:00 Creatinine 1.1 mg/dL (0.7-1.3) 05/23/17 06:00 Creat Clearance w eGFR > 60 (>60) 05/23/17 06:00 Calcium 8.3 mg/dL (8.5-10.1) L 05/23/17 06:00 Total Bilirubin 0.7 mg/dL (0.2-1.0) D 05/23/17 06:00 AST 34 U/L (15-37) D 05/23/17 06:00 ALT 55 U/L (12-78) D 05/23/17 06:00 Alkaline Phosphatase 71 U/L (45-117) 05/23/17 06:00 Total Protein 5.4 g/dl (6.4-8.2) L 05/23/17 06:00 Albumin 3.3 g/dl (3.4-5.0) L 05/23/17 06:00 ASSESSMENT AND PLAN: 82 yo M with a PMHx significant for HTN, DM, Afib(AC with Xarelto), vertigo and dementia who presents s/p mechanical fall with forehead laceration 1. s/p mechanical fall- with L lamina papyracea fracture with medial displacement. ENT consulted. will initiate augmentin due to blood in the sinuses. start saline spray BID. neuro consult for freq falls. EOMI. 2. acute microcytic anemia- concenr for drop in Hgb. do not have baseline. repeat cbc and monitor for bleeding. no active bleeding noted now 3. mod to large pericardial effusion- seen on echo. Stat CT confirms 2cm pericardial effusions. does not appear to be hemorrhagic. likely chronic and not traumatic (old rib fractures are posterior). d/w CT surgery. will repeat echo on thursday to ensure not worsening. then will f/u with CT surgery as outpatient for pericardicentesis with/without window. will cont to hold xarelto at this time. 4. Bigeminy- notified by ER that per plant senior manager this is not new and reported as baseline. cardiac enzymes neg x2. cardio consulted 5. Afib on xarelto- xarelto being held given effusion. cont rate control with betablocker 6. DM- hold oral agents. BGM, iss 7. BPH- cont avodart 8. DVT ppx- hold anticoagulation. SCD Visit type - Emergency Visit Emergency Visit: Yes ED Registration Date: 05/22/17 Care time: The patient presented to the Emergency Department on the above date and was hospitalized for further evaluation of their emergent condition. - New Patient This patient is new to me today: No - Critical Care Critical Care patient: No - Discharge Referral Referred to [facility] No
[2017-05-23] MEDS ORDERED: SODIUM CHLORIDE NASAL SPRAY 44 ML BOTTLE NS PRN (11:28)
[2017-05-23 12:14] LABS: MCH 32.2 pg (25.7-33.7); MCHC 33.1 g/dl (32.0-35.9); MEAN CELL VOLUME 97.3 fl (80-96); MEAN PLT VOLUME 8.5 fl (7.5-11.1); PLATELET COUNT 116 K/MM3 (134-434); RDW 14.9 % (11.9-15.9); WHITE BLOOD COUNT 5.5 K/mm3 (4.0-10.0)
--- NOTE | 2017-05-23 13:33 | EKG ---
Test Reason : Blood Pressure : / mmHG Vent. Rate : 085 BPM Atrial Rate : 056 BPM P-R Int : 000 ms QRS Dur : 092 ms QT Int : 388 ms P-R-T Axes : 000 109 044 degrees QTc Int : 461 ms ATRIAL FIBRILLATION WITH PREMATURE VENTRICULAR OR ABERRANTLY CONDUCTED COMPLEXES RIGHTWARD AXIS ABNORMAL ECG WHEN COMPARED WITH ECG OF 22-MAY-2017 05:26, RHYTHM ABOVE CLINICAL CORRELATION IS RECOMMENDED Confirmed by REBECCA LYNN, BLANK ([id number]) on 05/23/2017 1:33:14 PM Referred By: Confirmed By:BLANK FERNANDEZ MD
--- NOTE | 2017-05-23 15:00 | CON.NEURO ---
Consult Consult Specialty:: Neurology Referred by:: Sophia Reason for Consultation:: frequent falls - History of Present Illness Chief Complaint: falling History of Present Illness: Patient with history of dementia, htn, afib, and frequent falls admitted because of another fall. The patient reportedly tripped. His family says that he was getting up and became dizzy and fell hitting his head. He frequently becomes dizzy and this is usually provoked by getting up from a seated position and turning. I cannot elicit an answer as to the nature of the dizziness as to whether it is vertigo or lightheadedness. He has also had, as per the family, progressive weakness of the legs and tends to fall more to the left over the last several months in a progressive manner. No sensory loss or back pain history is acknowledged. The patient is severely hard of hearing and demented making it difficult to confirm the family's impressions with him. 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 Cardio/Vascular: Yes: AFIB, HTN Endocrine: Yes: Diabetes Mellitus - Alcohol/Substance Use Hx Alcohol Use: No - Smoking History Smoking history: Never smoked Have you smoked in the past 12 months: No Home Medications - Allergies Allergies/Adverse Reactions: Allergies Allergy/AdvReac Type Severity Reaction Status Date / Time No Known Allergies Allergy Verified 05/22/17 06:40 - Home Medications Home Medications: Ambulatory Orders Acetaminophen W/ Codeine #3 [Tylenol # 3 -] 1 tab PO DAILY 05/22/17 Donepezil HCl [Aricept -] 5 mg PO DAILY 05/22/17 Dutasteride [Avodart] 0.5 mg PO DAILY 05/22/17 Loratadine [Claritin] 10 mg PO DAILY 05/22/17 Losartan/Hydrochlorothiazide [Losartan-Hctz 100-25 mg Tab] 1 each PO DAILY 05/22 Meclizine HCl 12.5 mg PO DAILY 05/22/17 Metformin HCl 500 mg PO DAILY 05/22/17 Metoprolol Succinate [Toprol Xl -] 50 mg PO DAILY 05/22/17 Multivitamin,Therapeutic [Thera] 1 each PO DAILY 05/22/17 Rivaroxaban [Xarelto -] 20 mg PO DAILY 05/22/17 Sennosides [Senna] 8.6 mg PO DAILY 05/22/17 Sitagliptin Phosphate [Januvia] 50 mg PO DAILY 05/22/17 Physical Exam-Neuro Vital Signs: Vital Signs Temperature 98.4 F 05/23/17 14:00 Pulse Rate 84 05/23/17 14:00 Respiratory Rate 20 05/23/17 14:00 Blood Pressure 119/64 05/23/17 14:00 O2 Sat by Pulse Oximetry (%) 98 05/23/17 10:00 Constitutional: Yes: Well Nourished, Calm Labs: CBC, BMP 05/23/17 11:45 05/23/17 06:00 INR, PTT INR 1.22 (0.82-1.09) H 05/22/17 05:18 - Neuro Exam Level Of Consciousness: Yes: Alert Eyes: Yes: PERRL Cranial Nerves II-XII Intact: Yes DTR's: 0 Left Achilles, 0 Right Achilles, 1+ Left Bicep, 1+ Right Bicep, 1+ Left Tricep, 1+ Right Tricep, 1+ Left Brachioradialis, 1+ Right Brachioradialis Babinski: Absent Motor Strength: 5/5: Left Arm, Right Arm, Left Leg, Right Leg Gait: Other (difficulty standing without support, he had very short steps, and he is unsteady. ) Imaging - Results Cat Scan: Report Reviewed, Image Reviewed (CT Head Brain unremarkable CT C SPine , some degenerativ changes but no report of significant canal stenosis and none noted to my eyes.) Problem List - Problems (1) Gait abnormality Assessment/Plan: Short, unsteady steps, with difficulty turning. No explanation on MRI brain or C Spine. Would check syphilis screen and B12 level. Code(s): R26.9 - UNSPECIFIED ABNORMALITIES OF GAIT AND MOBILITY
[2017-05-23] MEDS: AMOX TR/POT CLAV 875MG/125MG TABLETS (FP) PO SCH (16:48)
[2017-05-24] MEDS: INSULIN SLIDING SCALE (NOVOLOG) 1 VIAL SQ SCH ×4 (06:04→21:23)
--- NOTE | 2017-05-24 07:32 | CONSULT ---
Consult - text type - Consultation Consultation Note: Thoracic Consultation: Pt seen and examined 05/23. Consultation for pericardial effusion. 82M with multiple medical problems, dementia, and multiple falls. Large heart noted on cxr after fall with facial injury. No hypotension on admission. Echo showed moderate-large pericardial effusion without tamponade. CT showed moderate-large pericardial effusion. Density was simple and is not blood. No acute fractures. PE: no chest tenderness. no muffled heart sounds. no JVD. Imp/Plan: Chronic pericardial effusion --Can work-up as outpatient if ready for discharge otherwise; --Would recommend echo-guided pericardiocentesis; --Outpatient risk stratification for pericardial window if deemed necessary by recurrence. I have spent 40 minutes in this consultation including >50% in counseling and coordination of care with Dr. Mukherjee and obtaining the patient's history, physical, and imaging.
[2017-05-24 07:42] LABS: MCH 32.5 pg (25.7-33.7); MCHC 33.6 g/dl (32.0-35.9); MEAN CELL VOLUME 96.7 fl (80-96); MEAN PLT VOLUME 8.9 fl (7.5-11.1); PLATELET COUNT 116 K/MM3 (134-434); RDW 14.6 % (11.9-15.9); WHITE BLOOD COUNT 5.2 K/mm3 (4.0-10.0)
[2017-05-24 08:20] LABS: THYROID STIMULATING HORMONE 2.67 uIU/ml (0.358-3.74)
[2017-05-24] MEDS ORDERED: PT OWN MED DRAWER 7, Y5N ONE (09:12)
[2017-05-24] MEDS: AMOX TR/POT CLAV 875MG/125MG TABLETS (FP) PO SCH ×2 (09:47→17:20)
[2017-05-24] MEDS: LOSARTAN POTASSIUM 25 MG TABLET PO SCH (09:48)
[2017-05-24] MEDS: METOPROLOL SUCCINATE 50 MG TAB.SR.24H (FP) PO SCH (09:48)
[2017-05-24] MEDS: HYDROCHLOROTHIAZIDE 25 MG TABLET (FP) PO SCH (09:48)
[2017-05-24] MEDS: DUTASTERIDE 0.5 MG CAP (FP) PO SCH (09:48)
[2017-05-24] MEDS: MECLIZINE HCL 12.5 MG TABLET PO SCH (09:48)
--- NOTE | 2017-05-24 11:19 | PN ---
Teaching Attending Note Name of Resident: Gerard Abarca ATTENDING PHYSICIAN STATEMENT I saw and evaluated the patient. I reviewed the resident's note and discussed the case with the resident. I agree with the resident's findings and plan as documented. SUBJECTIVE:asymptomatic. denies CP, SOB, fever, chills, N/V/C/D OBJECTIVE: Last Vital Signs Temp Pulse Resp BP Pulse Ox 98.0 F 81 18 113/77 97 05/24/17 05:58 05/24/17 05:58 05/24/17 05:58 05/24/17 05:58 05/23/17 21:00 General NAD HEENT periorbital swelling and hematoma, minimal tenderness along zygomatic arch CV S1 S2 irregular irregular no murmur. no chest wall contusions ASSESSMENT AND PLAN: 82 yo M with a PMHx significant for HTN, DM, Afib(AC with Xarelto), vertigo and dementia who presents s/p mechanical fall with forehead laceration 1. s/p mechanical fall- with L lamina papyracea fracture with medial displacement. ENT consulted. on augmentin bid for prophylactic treatment day 2. cont saline spray BID. EOMI. no clear etiology for frequent falls. neuro on board. labs pending. 2. acute microcytic anemia- Hgb stabilized. likely due to bleeding in sinuses. no indication for transfusion. 3. mod to large pericardial effusion-d/w niece on the phone last night. stated that they are aware of large pericardial effusion and has scheduled paracentesis for tomorrow. stated xarelto has been on hold this week for pending procedure. 4. 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 cardiac enzymes neg x2. cardio consulted 5. Afib on xarelto- xarelto being held given effusion. cont rate control with betablocker 6. DM- hold oral agents. BGM, iss 7. BPH- cont avodart 8. DVT ppx- hold anticoagulation. SCD 9. family yesterday requested to bring patient home so that he can still make it to procedure tomorrow as they do not want to delay it. they are unclear on the etiology of effusion. will call and discuss with cardiology if safe to discharge at this point.
--- NOTE | 2017-05-24 12:50 | DS ---
Physical Exam: SUBJECTIVE: Patient seen and examined OBJECTIVE: Vital Signs Period Temp Pulse Resp BP Sys/Mckoy Pulse Ox Last 24 Hr 97.9 F-98.4 F 61-113 16-20 113-124/58-87 97-99 PHYSICAL EXAM GENERAL: The patient is awake, alert, and fully oriented, in no acute distress. HEAD: Normal with no signs of trauma. EYES: PERRL, extraocular movements intact, sclera anicteric, conjunctiva clear. ENT: Ears normal, nares patent, oropharynx clear without exudates, moist mucous membranes. NECK: Trachea midline, full range of motion, supple. LUNGS: Breath sounds equal, clear to auscultation bilaterally, no wheezes, no crackles, no accessory muscle use. HEART: Regular rate and rhythm, S1, S2 without murmur, rub or gallop. ABDOMEN: Soft, nontender, nondistended, normoactive bowel sounds, no guarding, no rebound, no hepatosplenomegaly, no masses. EXTREMITIES: 2+ pulses, warm, well-perfused, no edema. NEUROLOGICAL: Cranial nerves II through XII grossly intact. Normal speech, gait not observed. PSYCH: Normal mood, normal affect. SKIN: Warm, dry, normal turgor, no rashes or lesions noted. LABS Laboratory Results - last 24 hr 05/23/17 05/23/17 05/23/17 06:00 16:37 20:53 WBC RBC Hgb Hct MCV MCH MCHC RDW Plt Count MPV Sodium 143 Potassium 3.7 Chloride 107 Carbon Dioxide 30 Anion Gap 6 L BUN 25 H Creatinine 1.1 Creat Clearance w eGFR > 60 POC Glucometer 124 206 Random Glucose 126 H Calcium 8.3 L Total Bilirubin 0.7 D AST 34 D ALT 55 D Alkaline Phosphatase 71 Total Protein 5.4 L Albumin 3.3 L Triglycerides Cholesterol Total LDL Cholesterol HDL Cholesterol Vitamin B12 614 TSH RPR Titer 05/24/17 05/24/17 05/24/17 06:00 06:00 06:00 WBC 5.2 RBC 3.17 L Hgb 10.3 L Hct 30.6 L MCV 96.7 H MCH 32.5 MCHC 33.6 RDW 14.6 Plt Count 116 L MPV 8.9 Sodium Potassium Chloride Carbon Dioxide Anion Gap BUN Creatinine Creat Clearance w eGFR POC Glucometer Random Glucose Calcium Total Bilirubin AST ALT Alkaline Phosphatase Total Protein Albumin Triglycerides 33 L Cancelled Cholesterol 83 Cancelled Total LDL Cholesterol 25 Cancelled HDL Cholesterol 55 Cancelled Vitamin B12 TSH 2.67 RPR Titer 05/24/17 05/24/17 05/24/17 06:00 06:00 11:52 WBC RBC Hgb Hct MCV MCH MCHC RDW Plt Count MPV Sodium Potassium Chloride Carbon Dioxide Anion Gap BUN Creatinine Creat Clearance w eGFR POC Glucometer 111 152 Random Glucose Calcium Total Bilirubin AST ALT Alkaline Phosphatase Total Protein Albumin Triglycerides Cholesterol Total LDL Cholesterol HDL Cholesterol Vitamin B12 TSH RPR Titer Nonreactive HOSPITAL COURSE: Date of Admission:05/22/17 Date of Discharge: 05/24/17 Discharge Summary Reason For Visit: VENTRICULAR BIGEMINY Current Active Problems Facial fracture due to fall (Acute) Atrial fibrillation (Chronic) BPH (benign prostatic hyperplasia) (Chronic) Bigeminy (Chronic) Diabetes mellitus (Chronic) Pericardial effusion (Chronic) - Home Medications Comprehensive Discharge Medication List: Ambulatory Orders Acetaminophen W/ Codeine #3 [Tylenol # 3 -] 1 tab PO DAILY 05/22/17 Donepezil HCl [Aricept -] 5 mg PO DAILY 05/22/17 Dutasteride [Avodart] 0.5 mg PO DAILY 05/22/17 Loratadine [Claritin] 10 mg PO DAILY 05/22/17 Losartan/Hydrochlorothiazide [Losartan-Hctz 100-25 mg Tab] 1 each PO DAILY 05/22 Meclizine HCl 12.5 mg PO DAILY 05/22/17 Metformin HCl 500 mg PO DAILY 05/22/17 Metoprolol Succinate [Toprol XL -] 50 mg PO DAILY 05/22/17 Multivitamin,Therapeutic [Thera] 1 each PO DAILY 05/22/17 Sennosides [Senna] 8.6 mg PO DAILY 05/22/17 Sitagliptin Phosphate [Januvia] 50 mg PO DAILY 05/22/17 Amox-Tr/K Cl [Augmentin 875-125mg Tablet -] 1 tab PO BID@0800,1730 #25 tablet Sodium Chloride Nasal [place] [[place] Nasal [place] -] 2 spray NS BID PRN #0 spray 05/24/17 - Discharge Referral Referred to [facility] No
--- NOTE | 2017-05-24 14:48 | PN ---
Physical Exam: SUBJECTIVE: Patient seen and examined No acute events overnight. Patient has no complaints this morning. OBJECTIVE: Vital Signs Period Temp Pulse Resp BP Sys/Mckoy Pulse Ox Last 24 Hr 97.9 F-98.4 F 61-113 16-20 109-124/58-87 97-99 GENERAL:Awake and alert HEAD: Normocephalic, Left sided hematoma and abrasion of superior orbit. left maxillary abrasion. +periorbital edema EYES:PERRLA,EOMI, sclera anicteric, conjunctiva clear. No lid lag. EARS, NOSE, THROAT: Moist mucous membranes. NECK: supple with no jvd, lad, or masses. LUNGS:Clear to auscultation bilaterally, No accessory muscle use. HEART: Irregular rhythm, normal S1 and S2 without murmur, rub or gallop. ABDOMEN: Soft, nontender, not distended, normoactive bowel sounds, no guarding, no rebound, no masses. No hepatomegaly or splenomegaly. MUSCULOSKELETAL: Normal range of motion at all joints. No bony deformities or tenderness. No CVA tenderness. UPPER EXTREMITIES: 2+ pulses, warm, well-perfused. No cyanosis. No clubbing. No peripheral edema. LOWER EXTREMITIES: 2+ pulses, warm, well-perfused. No calf tenderness. 1+ edema. Right foot with dried blood NEUROLOGICAL: Cranial nerves II-XII intact. gait not observed. PSYCHIATRIC: Cooperative. Good eye contact. Appropriate mood and affect. Laboratory Results - last 24 hr 05/23/17 05/23/17 05/23/17 06:00 16:37 20:53 WBC RBC Hgb Hct MCV MCH MCHC RDW Plt Count MPV Sodium 143 Potassium 3.7 Chloride 107 Carbon Dioxide 30 Anion Gap 6 L BUN 25 H Creatinine 1.1 Creat Clearance w eGFR > 60 POC Glucometer 124 206 Random Glucose 126 H Calcium 8.3 L Total Bilirubin 0.7 D AST 34 D ALT 55 D Alkaline Phosphatase 71 Total Protein 5.4 L Albumin 3.3 L Triglycerides Cholesterol Total LDL Cholesterol HDL Cholesterol Vitamin B12 614 TSH RPR Titer 05/24/17 05/24/17 05/24/17 06:00 06:00 06:00 WBC 5.2 RBC 3.17 L Hgb 10.3 L Hct 30.6 L MCV 96.7 H MCH 32.5 MCHC 33.6 RDW 14.6 Plt Count 116 L MPV 8.9 Sodium Potassium Chloride Carbon Dioxide Anion Gap BUN Creatinine Creat Clearance w eGFR POC Glucometer Random Glucose Calcium Total Bilirubin AST ALT Alkaline Phosphatase Total Protein Albumin Triglycerides 33 L Cancelled Cholesterol 83 Cancelled Total LDL Cholesterol 25 Cancelled HDL Cholesterol 55 Cancelled Vitamin B12 TSH 2.67 RPR Titer 05/24/17 05/24/17 05/24/17 06:00 06:00 11:52 WBC RBC Hgb Hct MCV MCH MCHC RDW Plt Count MPV Sodium Potassium Chloride Carbon Dioxide Anion Gap BUN Creatinine Creat Clearance w eGFR POC Glucometer 111 152 Random Glucose Calcium Total Bilirubin AST ALT Alkaline Phosphatase Total Protein Albumin Triglycerides Cholesterol Total LDL Cholesterol HDL Cholesterol Vitamin B12 TSH RPR Titer Nonreactive Active Medications Generic Name Dose Route Start Last Admin Trade Name Freq PRN Reason Stop Dose Admin Acetaminophen 650 mg 05/22/17 11:11 05/22/17 23:25 Tylenol - PO 650 mg Q4H PRN Administration FEVER OR PAIN Amoxicillin/Clavulanate Potassium 1 tab 05/23/17 17:30 05/24/17 09:47 Augmentin - 875mg Tablet PO 1 tab BID@0800,1730 PIERRE Administration Donepezil HCl 5 mg 05/23/17 10:00 05/23/17 22:01 Aricept - PO 5 mg HS PIERRE Administration Dutasteride 0.5 mg 05/23/17 10:00 05/24/17 09:48 Avodart - PO 0.5 mg DAILY PIERRE Administration Hydrochlorothiazide 25 mg 05/23/17 10:00 05/24/17 09:48 Hctz - PO 25 mg DAILY PIERRE Administration Insulin Aspart 1 vial 05/22/17 11:00 05/24/17 11:45 Novolog Vial Sliding Scale - SQ Not Given ACHS [facility] Protocol Losartan Potassium 25 mg 05/23/17 10:00 05/24/17 09:48 Cozaar - PO 25 mg DAILY PIERRE Administration Meclizine HCl 12.5 mg 05/23/17 10:00 05/24/17 09:48 Antivert - PO 12.5 mg DAILY PIERRE Administration Metoprolol Succinate 50 mg 05/23/17 10:00 05/24/17 09:48 Toprol Xl - PO 50 mg DAILY PIERRE Administration Sodium Chloride 2 spray 05/23/17 11:28 [place] Nasal [place] - NS BID PRN NASAL CONGESTION ASSESSMENT/PLAN: 82 yo M with a past medical history significant for HTN, DM, Afib(AC with Xarelto), vertigo and dementia presented s/p mechanical fall admitted for facial fracture and ventricular bigeminy. #Mechanical Fall 2/2 to arrythmia vs baseline dementia -L lamina papyracea fracture -Dr. Aguilar (senior c web developer) said patient has atrial fibrillation and bigeminy as baseline -Cardiology consult, Dr. Kerns -Neurology consult, Dr Emmanuel -Troponins negative x3 -Continue aricept #Facial Fracture -Augmentin Day 3 -Saline spray bid -EOMI -Ent consulted, Dr. Rodríguez -Tylenol 650 mg q4 prn for pain #Pericardial effusion -Dr. Mukherjee has discussed the plan with niece -Repeat echocardiogram tomorrow -Patient's appointment for tomorrow cancelled -Hold Xarelto -F/u with Ct surgery #Atrial Fibrillation, -Hold Xarelto 20 mg daily -Lopressor 50 mg po daily #Diabetes Mellitus -Will hold home medications -BGM ACHS -ISS ACHS #Vertigo -Continue meclizine 12.5 mg po daily #HTN -Continue Cozaar 25 mg po daily, hctz 25 mg po daily, toporol xl 50 mg po daily #BPH -Continue avodart 0.5 mg po daily #fen/gi no fluids electrolytes wnl sodium controlled diet #ppx dvt- scds, xarelto currently held gi not indicated Dispo: If echo remains stable and hemoglobin stays stable, possible d/c tomorrow Visit type - Emergency Visit Emergency Visit: No - New Patient This patient is new to me today: No - Critical Care Critical Care patient: No
--- NOTE | 2017-05-24 15:41 | PN ---
Progress Note, Physician History of Present Illness: Patient with history of dementia, htn, afib, and frequent falls admitted because of another fall. The patient reportedly tripped. His family says that he was getting up and became dizzy and fell hitting his head. He frequently becomes dizzy and this is usually provoked by getting up from a seated position and turning. I cannot elicit an answer as to the nature of the dizziness as to whether it is vertigo or lightheadedness. He has also had, as per the family, progressive weakness of the legs and tends to fall more to the left over the last several months in a progressive manner. No sensory loss or back pain history is acknowledged. The patient is severely hard of hearing and demented making it difficult to confirm the family's impressions with him. - Current Medication List Current Medications: Active Medications Acetaminophen (Tylenol -) 650 mg PO Q4H PRN PRN Reason: FEVER OR PAIN Last Admin: 05/22/17 23:25 Dose: 650 mg Amoxicillin/Clavulanate Potassium (Augmentin - 875mg Tablet) 1 tab PO BID@0800, 1730 [facility] Last Admin: 05/24/17 09:47 Dose: 1 tab Donepezil HCl (Aricept -) 5 mg PO HS [facility] Last Admin: 05/23/17 22:01 Dose: 5 mg Dutasteride (Avodart -) 0.5 mg PO DAILY [facility] Last Admin: 05/24/17 09:48 Dose: 0.5 mg Hydrochlorothiazide (Hctz -) 25 mg PO DAILY [facility] Last Admin: 05/24/17 09:48 Dose: 25 mg Insulin Aspart (Novolog Vial Sliding Scale -) 1 vial SQ ACHS [facility] PRN Reason: Protocol Last Admin: 05/24/17 11:45 Dose: Not Given Losartan Potassium (Cozaar -) 25 mg PO DAILY [facility] Last Admin: 05/24/17 09:48 Dose: 25 mg Meclizine HCl (Antivert -) 12.5 mg PO DAILY [facility] Last Admin: 05/24/17 09:48 Dose: 12.5 mg Metoprolol Succinate (Toprol Xl -) 50 mg PO DAILY [facility] Last Admin: 05/24/17 09:48 Dose: 50 mg Sodium Chloride ([place] Nasal [place] -) 2 spray NS BID PRN PRN Reason: NASAL CONGESTION - Objective Vital Signs: Vital Signs Temperature 98.4 F 05/24/17 14:00 Pulse Rate 92 H 05/24/17 14:00 Respiratory Rate 20 05/24/17 14:00 Blood Pressure 109/73 05/24/17 14:00 O2 Sat by Pulse Oximetry (%) 99 05/24/17 10:00 Neurological: Yes: Alert, Other (Level Of Consciousness: Yes: Alert Eyes: Yes: PERRL Cranial Nerves II-XII Intact: Yes Except for severely impaired hearing DTR 's: 0 Left Achilles, 0 Right Achilles, 1+ Left Bicep, 1+ Right Bicep, 1+ Left Tricep, 1+ Right Tricep, 1+ Left Brachioradialis, 1+ Right Brachioradialis Babinski: Absent Motor Strength: 5/5: Left Arm, Right Arm, Left Leg, Right Leg Gait: Other (difficulty standing without support, he had very short steps, and he is unsteady.) Labs: CBC, BMP 05/24/17 06:00 05/23/17 06:00 INR, PTT INR 1.22 (0.82-1.09) H 05/22/17 05:18 - ....Imaging MRI: Report Reviewed, Image Reviewed Problem List - Problems (1) Gait abnormality Assessment/Plan: Short, unsteady steps, with difficulty turning. No explanation on MRI brain or C Spine. Syphilis screen negative. B12 is normal. Suspect combination of vestibular dysfunction and dementia. Will need assistive device for ambulation. No further neurologic workup required. Please call for additional questions. Code(s): R26.9 - UNSPECIFIED ABNORMALITIES OF GAIT AND MOBILITY
[2017-05-24] MEDS: DONEPEZIL HCL 5 MG TABLET (FP) PO SCH (21:26)
[2017-05-25] MEDS: INSULIN SLIDING SCALE (NOVOLOG) 1 VIAL SQ SCH ×2 (06:12→11:36)
[2017-05-25 07:53] LABS: MCH 32.7 pg (25.7-33.7); MCHC 33.8 g/dl (32.0-35.9); MEAN CELL VOLUME 96.8 fl (80-96); MEAN PLT VOLUME 8.8 fl (7.5-11.1); NEUTROPHILS 56.5 % (42.8-82.8); PLATELET COUNT 124 K/MM3 (134-434); RDW 14.6 % (11.9-15.9); WHITE BLOOD COUNT 4.6 K/mm3 (4.0-10.0)
[2017-05-25] MEDS: HYDROCHLOROTHIAZIDE 25 MG TABLET (FP) PO SCH (10:19)
[2017-05-25] MEDS: LOSARTAN POTASSIUM 25 MG TABLET PO SCH (10:20)
[2017-05-25] MEDS: AMOX TR/POT CLAV 875MG/125MG TABLETS (FP) PO SCH (10:20)
[2017-05-25] MEDS: METOPROLOL SUCCINATE 50 MG TAB.SR.24H (FP) PO SCH (10:20)
[2017-05-25] MEDS: DUTASTERIDE 0.5 MG CAP (FP) PO SCH (10:21)
[2017-05-25] MEDS: MECLIZINE HCL 12.5 MG TABLET PO SCH (10:21)
[2017-05-25] MEDS ORDERED: INSULIN (NOVOLOG) ASPART 100 UNITS/ML 10ML VIAL ONE (11:23)
--- NOTE | 2017-05-25 12:00 | PN ---
Teaching Attending Note Name of Resident: Gerard Abarca ATTENDING PHYSICIAN STATEMENT I saw and evaluated the patient. I reviewed the resident's note and discussed the case with the resident. I agree with the resident's findings and plan as documented. SUBJECTIVE:sitting comfortable in chair. denies CP, palpitaitons, N/V/C/D OBJECTIVE: Last Vital Signs Temp Pulse Resp BP Pulse Ox 98.2 F 84 18 116/78 97 05/25/17 08:46 05/25/17 08:46 05/25/17 08:46 05/25/17 08:46 05/25/17 08:40 General NAD HEENT periorbital swelling and hematoma, minimal tenderness along zygomatic arch CV S1 S2 irregular irregular no murmur. no chest wall contusions ASSESSMENT AND PLAN: 82 yo M with a PMHx significant for HTN, DM, Afib(AC with Xarelto), vertigo and dementia who presents s/p mechanical fall with forehead laceration 1. s/p mechanical fall- with L lamina papyracea fracture with medial displacement. ENT consulted. on augmentin bid for prophylactic treatment day 3. cont saline spray BID. EOMI. no clear etiology for frequent falls. neuro on board. labs pending. 2. acute microcytic anemia- Hgb stabilized. likely due to bleeding in sinuses. no indication for transfusion. 3. mod to large pericardial effusion- will repeat echo today. if remains stable can be d/c and follow up with CT surgery for drainage and further workup. 4. Bigeminy- notified by ER that per supervisor in charge this is not new and reported as baseline. cardiac enzymes neg x2. cardio consulted 5. Afib on xarelto- will re-start xarelto if effusion remains stable. cont rate control with betablocker 6. DM- hold oral agents. BGM, iss 7. BPH- cont avodart 8. DVT ppx- hold anticoagulation. SCD 9. PT evaluation for assistive device. family want to take him home. if echo fine can be d/c home
--- NOTE | 2017-05-25 14:23 | DS ---
Physical Exam: LABS Selected Entries 05/22/17 05/25/17 05/25/17 05:00 08:40 08:46 Temperature 97.4 F L Pulse Rate 40 L 84 Blood Pressure 125/72 O2 Sat by Pulse 97 Oximetry (%) Oxygen Delivery Room Air Method 05/25/17 14:47 Temperature 98.7 F Pulse Rate Blood Pressure 116/57 O2 Sat by Pulse Oximetry (%) Oxygen Delivery Method Laboratory Tests 05/22/17 05/22/17 05/22/17 05:18 05:18 05:18 WBC 4.2 Plt Count 113 L AST 65 H ALT 83 H Troponin I < 0.02 Triglycerides Cholesterol Total LDL Cholesterol HDL Cholesterol Vitamin B12 TSH Urine Color Urine Appearance Urine pH Ur Specific [place] Urine Protein Urine Glucose (UA) Urine Ketones Urine Blood Urine Nitrite Urine Bilirubin Urine Urobilinogen Ur Leukocyte Esterase RPR Titer T.pallidum Ab (FTA-ABS) 05/22/17 05/22/17 05/22/17 08:47 12:20 18:18 WBC Plt Count AST ALT Troponin I < 0.02 < 0.02 Triglycerides Cholesterol Total LDL Cholesterol HDL Cholesterol Vitamin B12 TSH Urine Color Ltyellow Urine Appearance Clear Urine pH 5.0 Ur Specific [place] 1.015 Urine Protein Negative Urine Glucose (UA) Negative Urine Ketones Trace H Urine Blood Negative Urine Nitrite Negative Urine Bilirubin Negative Urine Urobilinogen Negative Ur Leukocyte Esterase Negative RPR Titer T.pallidum Ab (FTA-ABS) 05/23/17 05/24/17 05/24/17 06:00 06:00 06:00 WBC Plt Count AST ALT Troponin I Triglycerides 33 L Cholesterol 83 Total LDL Cholesterol 25 HDL Cholesterol 55 Vitamin B12 614 TSH 2.67 Urine Color Urine Appearance Urine pH Ur Specific [place] Urine Protein Urine Glucose (UA) Urine Ketones Urine Blood Urine Nitrite Urine Bilirubin Urine Urobilinogen Ur Leukocyte Esterase RPR Titer Nonreactive T.pallidum Ab (FTA-ABS) 05/24/17 05/25/17 06:00 06:00 WBC 4.6 Plt Count 124 L AST ALT Troponin I Triglycerides Cholesterol Total LDL Cholesterol HDL Cholesterol Vitamin B12 TSH Urine Color Urine Appearance Urine pH Ur Specific [place] Urine Protein Urine Glucose (UA) Urine Ketones Urine Blood Urine Nitrite Urine Bilirubin Urine Urobilinogen Ur Leukocyte Esterase RPR Titer T.pallidum Ab (FTA-ABS) Pending Imaging- 05/22- HEAD CT--No evidence of acute intracranial hemorrhage, edema, midline shift, mass effect, or skull fracture. No CT evidence of acute territorial ischemic changes. Comminuted fracture of left lamina papyracea with mild medial displacement. No entrapment of the left medial rectus muscles. Swollen left medial rectus muscles. Minimal increased attenuation of retro-orbital fat along the lamina papyracea represents edema possible, hemorrhage. Hemorrhagic air- fluid level in the left maxillary sinus. Majority of the left ethmoid air cells are opacified. CERVICAL SPINE CT--No evidence of acute fracture, compression deformities, subluxation, prevertebral soft tissue swelling. Obscured left piriform sinus. Laryngoscopy recommended CXR--Cardiomegaly. No evidence of CHF. No evidence of active pulmonary disease. CHEST CT--A moderate to large pericardial effusion is seen. Cardiomegaly. Trace bilateral pleural effusions and mild basilar interstitial thickening suggestive of mild pulmonary vascular congestion. Calcified right upper lobe granuloma. Small calcified mediastinal lymph nodes. Mildly prominent preaortic mediastinal lymph node which is probably hyperplastic in nature. Chronic left rib fractures posteriorly. ECHO-05/22 moderate to large pericardial effusion, mildly elevated RA, LA. mild MR, TR. ECHO-05/25 Size of pericardial effusion has decreased HOSPITAL COURSE: Date of Admission:05/22/17 Date of Discharge: 05/25/17 82 year old M with pmh of HTN, DM, Afib on Xarelto, vertigo, Bigeminy, and dementia who presented to the ED s/p mechanical fall with forehead laceration. Fall was witnessed by as he was ambulating to the bathroom. Patient has been having increased falls recently. In the ED, trops - x3, UA-negative, CXR- no acute process, EKG- pvc's in bigeminy and right axis deviation, and CT head- left orbital fracture. Patient admitted for fracture and further workup. ENT consulted for fall. Patient started on augmentin for blood in the sinuses. He will complete a 14 day course. Patient will also use saline spray BID. Syphilis and B12 testing was negative. Patient underwent echocardiogram fond to have a moderate to large pericardial effusion, which was known to patient's family. Patient was hemodynamically stable and was being evaluated outpatient for this effusion. Repeat echocardiogram showed a decrease in size of pericardial effusion. No signs of cardiac tamponade. CT surgery evaluated (Dr. Adams). Pt will f/u outpatient with Dr. Adams and will hold his xarelto until the f/u. Patient discharged with the plan to f/u with ENT, PCP, and CT surgery. He will hold xarelto until evaluated by CT surgery. Minutes to complete discharge: 45 Discharge Summary Reason For Visit: VENTRICULAR BIGEMINY Current Active Problems Facial fracture due to fall (Acute) Pericardial effusion (noninflammatory) (Acute) Sinusitis (Acute) Atrial fibrillation (Chronic) BPH (benign prostatic hyperplasia) (Chronic) Bigeminy (Chronic) Diabetes mellitus (Chronic) Pericardial effusion (Chronic) Condition: Stable - Instructions Diet, Activity, Other Instructions: You were in the hospital due to a fall you had. You have a fracture of a bone in your face. Please follow up with the ENT doctors within 1 week. A referral has been provided for you Please follow up with Dr. Adams regarding the blood surrounding your heart within 1 week. you should have this fluid removed and determined what caused it. Please follow up with your silver miner blasting at your appointment this week. Please follow up with your primary care provider within 1 week. Continue the following medications: -Acetaminophen W/ Codeine #3 1 tab by mouth DAILY -Donepezil HCl [Aricept -] 5 mg by mouth DAILY -Dutasteride [Avodart] 0.5 mg by mouth DAILY -Loratadine [Claritin] 10 mg by mouth DAILY -Losartan/Hydrochlorothiazide [Losartan-Hctz 100-25 mg Tab] 1 each by mouth DAILY -Meclizine HCl 12.5 mg by mouth DAILY -Metformin HCl 500 mg by mouth DAILY -Metoprolol Succinate [Toprol XL -] 50 mg by mouth DAILY -Multivitamin,Therapeutic [Thera] 1 each by mouth DAILY -Sennosides [Senna] 8.6 mg by mouth DAILY -Sitagliptin Phosphate [Januvia] 50 mg by mouth DAILY Do not take the following medications: -Xarelto (Your silver miner blasting will inform you when to start taking this medication again) Start the following medications. -Augmentin 875-125mg Tablet 1 tab by mouth two times per day until 06/05 -Sodium Chloride Nasal [place] 2 spray two times per day as needed If you have chest pain, shortness of breath, or any new symptoms please come back to the hospital immediately. Referrals: Eleno Adams MD [Staff Physician] - Ricardo Rodríguez MD [Staff Physician] - Disposition: HOME - Home Medications Comprehensive Discharge Medication List: Ambulatory Orders Acetaminophen W/ Codeine #3 [Tylenol # 3 -] 1 tab PO DAILY 05/22/17 Donepezil HCl [Aricept -] 5 mg PO DAILY 05/22/17 Dutasteride [Avodart] 0.5 mg PO DAILY 05/22/17 Loratadine [Claritin] 10 mg PO DAILY 05/22/17 Losartan/Hydrochlorothiazide [Losartan-Hctz 100-25 mg Tab] 1 each PO DAILY 05/22 Meclizine HCl 12.5 mg PO DAILY 05/22/17 Metformin HCl 500 mg PO DAILY 05/22/17 Metoprolol Succinate [Toprol XL -] 50 mg PO DAILY 05/22/17 Multivitamin,Therapeutic [Thera] 1 each PO DAILY 05/22/17 Sennosides [Senna] 8.6 mg PO DAILY 05/22/17 Sitagliptin Phosphate [Januvia] 50 mg PO DAILY 05/22/17 Sodium Chloride Nasal [place] [[place] Nasal [place] -] 2 spray NS BID PRN #0 spray 05/24/17 Amox-Tr/K Cl [Augmentin 875-125mg Tablet -] 1 tab PO BID@0800,1730 #23 tablet This patient is new to me today: No Emergency Visit: No Critical Care patient: No - Discharge Referral Referred to [facility] No
[2017-05-25 14:49] VITALS: BP 116/57; PULSE 116; TEMP 98.7
== END 2017-05-25 15:16 | disposition home or self-care (01) | DRG 565 ==
LOC: JER 03:47 → JERBED 09:57 → J4S 16:35
PROVIDERS: ADMIT Internal Medicine; ATTEND Internal Medicine
DX: S02.82XA Fracture of other specified skull and facial bones, left side, initial encounter for closed fracture (principal); I31.3 Pericardial effusion (noninflammatory); S00.81XA Abrasion of other part of head, initial encounter; I49.3 Ventricular premature depolarization; W01.198A Fall on same level from slipping, tripping and stumbling with subsequent striking against other object, initial encounter; Y93.89 Activity, other specified; Y92.031 Bathroom in apartment as the place of occurrence of the external cause; Y99.8 Other external cause status; I10 Essential (primary) hypertension; E11.9 Type 2 diabetes mellitus without complications; Z79.84 Long term (current) use of oral hypoglycemic drugs; I48.91 Unspecified atrial fibrillation; Z79.01 Long term (current) use of anticoagulants; F03.90 Unspecified dementia, unspecified severity, without behavioral disturbance, psychotic disturbance, mood disturbance, and anxiety; Z91.81 History of falling; H61.23 Impacted cerumen, bilateral; N40.0 Benign prostatic hyperplasia without lower urinary tract symptoms; J34.2 Deviated nasal septum; D50.8 Other iron deficiency anemias; R42 Dizziness and giddiness; R26.9 Unspecified abnormalities of gait and mobility
CPT/HCPCS: 36415; 70450-TC; 71010-TC; 71260-TC; 72125-TC; 80053; 80061; 81003; 82136; 82553; 82607; 83721; 83735; 83918; 84443; 84484; 85025; 85027; 85610; 85730; 86593; 86780; 93005; 93010; 93306-TC; 97116-GP; 97161-GP; 99285-25